=== PATIENT | female | born 1980 | race Caucasian/White ===

== ENCOUNTER 2022-01-14 16:48 | Emergency (ER) | payer MEDICAID, SELFPAY ==
[2022-01-14 16:56] VITALS: BP 146/83; PULSE 76; RESP 18; TEMP 36.3; O2SAT 100
--- NOTE | 2022-01-14 16:57 | ED.SKABFB ---
HPI - Skin/Abscess/Foreign Bdy General Chief complaint: Wound/Laceration Stated complaint: right 1 digit toe infection Time Seen by Provider: 01/14/22 17:00 Source: patient Mode of arrival: ambulatory Limitations: no limitations History of Present Illness HPI narrative: 41-year-old female presented for complaint of right great toe swelling and pain, onset today. Denies injury. She endorses a history of a broken great toenail which has not healed, and usually applies acrylic nail to the toe. She states she had a pedicure about 1 week ago, acrylic applied at that time. Today she endorses redness, pain, warmth, and decreased range of motion to the great toe surrounding the nail. States nail is unchanged. No active drainage. She has not taken anything for pain. She is 2 months . MD complaint: rash Related Data Allergies Allergy/AdvReac Type Severity Reaction Status Date / Time ibuprofen Allergy Intermediate hives Verified 08/03/16 23:33 pseudoephedrine Allergy Intermediate hives Verified 08/03/16 23:33 Review of Systems Review of Systems: CONSTITUTIONAL: Denies body aches, fever, chills, or sweats. EYES: Denies visual changes, redness, or discharge. ENT: Denies rhinorrhea, congestion, sore throat, or otalgia. CARDIOVASCULAR: Denies chest pain, palpitations, or edema. RESPIRATORY: Denies cough or dyspnea. GASTROINTESTINAL: Denies abdominal pain, nausea, vomiting, or diarrhea. GENITOURINARY: Denies dysuria or hematuria. SKIN: redness swelling right great toe. MUSCULOSKELETAL: Denies back pain, joint pain, or myalgia. NEUROLOGIC: Denies headache, numbness, tingling, or weakness. PSYCH: Denies depression or anxiety. [facility] Comments At time of signature, I have reviewed and agree with nursing past medical, surgical, social and family history unless otherwise noted. Please see nursing chart for further information. There is no relevant family history pertinent to the presenting complaint Exam Narrative: GENERAL: Well-appearing HEAD: Normocephalic, atraumatic. EYES: conjunctivae clear, and EOMI. ENT: Mucous membranes moist. Oropharynx without edema, erythema or lesions. NECK: Supple. No lymphadenopathy CHEST: Clear to auscultation. No respiratory distress. HEART: Regular rate and rhythm. SKIN: Right great toe erythematous, warm, and swollen at middle/distal phalanx, no active drainage, tender at distal phalanx, nontender to MTP. Decreased ROM to toe. No streaking. PPP. Toenail broken, chronic/unchanged per pt. NEURO: Alert and oriented x3. PSYCH: Normal mood and affect Course Course Emergency Course: Patient is aware of diagnosis, understands and agrees to treatment plan. Anticipatory guidance given. Patient agrees to follow-up as directed and is aware of reasons to seek care at the emergency department. Portions of this record may have been created with voice recognition software Level of Care: Express Care Visit Vital Signs Vital signs: Reviewed MDM - Skin/Abscess/Foreign Bdy MDM Narrative Medical decision making narrative: Instructed patient to go to nearest ER immediately for any worsening symptoms including but not limited to: fever, spreading redness, pain, drainage, or any symptoms concerning to the patient. Differential Diagnosis Differential diagnosis: Likely abscess of skin or subcutaneous tissue, urticaria, herpes zoster, cellulitis and contact dermatitis Discharge Plan Discharge Clinical Impression: Cellulitis Qualifiers: Site of cellulitis: extremity Site of cellulitis of extremity: toe Laterality: right Qualified Code(s): L03.031 - Cellulitis of right toe Patient Disposition: Home, Self-Care Condition: Stable Instructions: Antibiotic Form, Ingrown Nail (ED) Additional Instructions: Warm salt water or soapy water soaks at least 3 times a day Tylenol 1000mg every 8 hours as needed Keep the right foot elevated Take antibiotic as directed Follow up with your primary care p
[2022-01-14 17:06] VITALS: BP 146/83; PULSE 76; RESP 18; TEMP 36.3; O2SAT 100
== END 2022-01-14 17:11 | disposition home or self-care (01) ==
PROVIDERS: Emergency Provider Nurse Practitioner Family
DX: L03.031 Cellulitis of right toe (principal)
CPT/HCPCS: 99213; G0463

== ENCOUNTER 2022-07-30 09:34 | Observation (INO) | payer OTHER, SELFPAY ==
[2022-07-30 10:49] VITALS: BP 143/83; PULSE 87
--- NOTE | 2022-07-30 13:38 | OBADM ---
This patient, Sayra Lee, admitted to the OB room OB Post 116 for observation. Patient/family oriented to hospital policies and general routines including ID bracelet, bed and alarms, visiting hours, pain management, procedures, bathroom and other care routines, personal items, smoking policy, room service/diet, and visiting hours. Patient/Family are encouraged to report perceived risks to care and to ask questions if they do not understand what they are told or what they should do.
[2022-07-30 13:45] VITALS: BP 143/83
--- NOTE | 2022-08-30 08:36 | PM.OBTRLD ---
OB - Triage/Final Diagnosis Visit Information Comments/Additional reasons for admission: I have assessed the risk for this patient, Sayra Lee, and determined that she would benefit from observation care. Final Diagnosis (1) Breech presentation: Code(s): O32.1XX0 - Maternal care for breech presentation, not applicable or unspecified Status: Acute
== END 2022-07-30 13:00 | disposition home or self-care (01) ==
PROVIDERS: Admitting Provider Obstetrics & Gynecology; Visit Provider Obstetrics & Gynecology
DX: O32.1XX0 Maternal care for breech presentation, not applicable or unspecified (principal); Z3A.00 Weeks of gestation of pregnancy not specified
CPT/HCPCS: 59025; G0378; G0379

== ENCOUNTER 2022-08-02 06:30 | Outpatient (CLI) | payer OTHER, SELFPAY ==
[2022-08-02] VITALS (22 sets, daily range): BP systolic 123–148; BP diastolic 50–95; PULSE 88–106; O2SAT 96–100
--- NOTE | 2022-08-02 07:24 | P.HP_ITS ---
H&P: HPI History of Present Illness Date/Time: 08/02/22 07:24 Chief Complaint: breech Narrative: Sayra is a 42yo at 36.1 with a breech baby. US on 07/22 EFW 15%, normal fluid, anterior placenta. She has had two prior vaginal deliveries. RH pos. otherwise complicated by AMA over 40yo. Review of Systems Review of Systems: All systems reviewed & are unremarkable except as noted in HPI and below PMFSH Family History Family History (Updated 07/23/22 @ 13:19 by Sudha Copeland, DINESH) Other Patient denies significant medical history Social History Social History Substance use: never Spiritual care concerns: No Meds Home Medications and Allergies Home Medications Medication Instructions Recorded Confirmed Type aspirin 81 mg tablet 81 mg PO DAILY 07/23/22 07/23/22 History prenat.vits,lidia,kss-eqpp-vfilk 1 tablet PO HS 07/23/22 07/23/22 History Allergies Allergy/AdvReac Type Severity Reaction Status Date / Time ibuprofen Allergy Intermediate hives Verified 08/03/16 23:33 pseudoephedrine Allergy Intermediate hives Verified 08/03/16 23:33 Vital Signs Vital Signs - 24 hr 08/02/22 07:12 08/02/22 07:15 Pulse Rate 96 88 Blood Pressure 148/77 H 132/70 Exam Const: General: no acute distress Resp: Effort & Inspection: normal respiratory effort Auscultation: clear to auscultation bilaterally Cardio: Rate: regular rate Rhythm: regular rhythm GI: GI Palp: Yes Soft to palpation Extrem: General: normal to inspection Assessment and Plan Assessment and plan (1) Breech presentation: Code(s): O32.1XX0 - Maternal care for breech presentation, not applicable or unspecified Status: Acute Plan Discussed CS at 39w vs attempted ECV. Pt desires ECV. Discussed risks inc luding need for emergent delivery and risk of failure. Questions answered, will proceed.
[2022-08-02] MEDS: TERBUTALINE SULFATE 1 MG/ML VIAL 0.25 MG SUB-Q (07:38)
--- NOTE | 2022-08-02 07:52 | P.OP_ITS ---
Procedure Note - Detailed Date of Procedure 08/02/22 Pre-op Diagnosis Version Post-op Diagnosis Same Procedure Performed External Cephalic Version, failed Surgeon Kim Deng MD Equipment Mechanic Specialist none Anesthesia None Indications breech presentation Description of Procedure heart tones were category 1 prior to procedure. She received terbutaline preprocedure. Ultrasound was done verifying anterior placenta, adequate fluid, and breech presentation. Using ultrasound gel as lubricant, several attempts were made at both a forward roll and backward roll, but the head only moved to midline in the upper quadrant. Heart tones were intermittently visualized with the ultrasound and were normal. The procedure was terminated. Patient tolerated the procedure well. The baby was placed back on the monitor for an additional hour. Estimated Blood Loss 0 Drains No Packing No Pathology None sent Complications No immediate complications Condition Stable Disposition Other (home after monitoring complete.)
--- NOTE | 2022-08-02 07:52 | WPDHPUPDATE1 ---
History and Physical Update Update Date/Time: 08/02/22 07:52 History and Physical has been reviewed, including an updated exam of the patient. There are NO changes in the patient's condition. Risks, benefits, and alternatives have been discussed and questions answered. Patient agrees to proceed with procedure.
== END 2022-08-02 09:05 | disposition home or self-care (01) ==
LOC: ANHOBOP 06:36 → ANHLDR 06:39
PROVIDERS: Visit Provider Obstetrics & Gynecology
DX: O32.1XX0 Maternal care for breech presentation, not applicable or unspecified (principal); Z3A.36 36 weeks gestation of pregnancy
CPT/HCPCS: 59412; 96372; 99199; J3105

== ENCOUNTER 2022-08-13 10:19 | Inpatient (IN) | payer OTHER, SELFPAY ==
[2022-08-13] VITALS (63 sets, daily range): BP systolic 76–150; BP diastolic 24–127; PULSE 60–99; RESP 16–18; TEMP 36.3–37; O2SAT 98–100; BMI 37.6
--- NOTE | 2022-08-13 10:41 | LDADM ---
This patient, Sayra Lee, was admitted to OB Post 117 on 08/13/22 at 10:19. Plans for labor, pain management and were discussed with patient. Patient/family oriented to hospital policies and general routines including ID bracelet, bed and alarms, visiting hours, pain management, procedures, bathroom and other care routines, personal items, smoking policy, room service/diet and guest tray routines, infant security routines, and visiting hours. Patient/Family are encouraged to report perceived risks to care and to ask questions if they do not understand what they are told or what they should do. See OBIX for further documentation.
[2022-08-13 11:24] LABS: Basophils Absolute Auto 0.1 K/mm3 (0.0-0.1); Basophils Percent Auto 0.4 % (0.2-1.2); Eosinophils Absolute Auto 0.2 K/mm3 (0-0.3); Hematocrit 36.1 % (37.0-47.0); Hemoglobin 12.2 g/dL (12.0-15.0); Immature Granulocyte Absolute 0.09 K/mm3 (0.00-0.031); Immature Granulocyte Percent A 0.8 % (0-0.5); Lymphocytes Absolute Auto 2.22 K/mm3 (0.9-3.2); Lymphocytes Percent Auto 18.8 % (18.3-44.2); Mean Corpuscular HGB Conc 33.8 g/dl (32-36); Mean Corpuscular Hemoglobin 30.2 pg (26-34); Mean Corpuscular Volume 89.4 fl (80-100); Monocytes Absolute Auto 0.7 K/mm3 (0.1-0.6); Monocytes Percent Auto 6.2 % (2.6-8.5); Neutrophils Absolute Auto 8.5 K/mm3 (1.3-6.7); Neutrophils Percent Auto 71.8 % (45.5-73.1); Platelet Count Result 303 k/mm3 (150-375); Red Blood Count 4.04 M/mm3 (4.2-5.4); White Blood Count 11.8 K/mm3 (4.5-10.0)
[2022-08-13 11:39] LABS: Alanine Aminotransferase 26 U/L (6-35); Albumin Level 3.7 g/dL (3.5-5.1); Alkaline Phosphatase 136 U/L (38-126); Anion Gap 8 mmol/L (8-16); Aspartate Amino Transferase 27 U/L (14-36); Bilirubin,Total 0.5 mg/dL (0.2-1.3); Blood Urea Nitrogen 7 mg/dL (7-17); Calcium 8.7 mg/dL (8.4-10.2); Carbon Dioxide 20 mmol/L (22-30); Chloride 107 mmol/L (98-107); Estimated CRCL calculation 120 ml/min; Estimated Glomerular Filt Rate > 60; Glucose 126 mg/dL (65-110); Potassium 3.7 mmol/L (3.4-5.0); Sodium 135 mmol/L (137-145)
[2022-08-13] MEDS: LACTATED RINGERS 1,000 ML 125 ML IV CONT (11:50)
--- NOTE | 2022-08-13 12:08 | PM.IMHP ---
H&P: HPI History of Present Illness Date/Time: 08/13/22 12:08 Chief Complaint: PreEclampsia Narrative: Sayra is a 42yo who presented to the office today at 38.0 for visit with BPs 172/96 and 158/96, increased edema, 1+ proteinuria, and blurry vision. Had PreE at the end of her last time. Is breech, so planned CS this time. Has had panniculectomy. Also SGA asnd AMA. Review of Systems Review of Systems: All systems reviewed & are unremarkable except as noted in HPI and below PMFSH Family History Family History (Updated 07/23/22 @ 13:19 by Sudha Copeland RN) Other Patient denies significant medical history Social History Social History Smoking status: Never smoker Substance use: never Lack of Transportation: No Lack of Food: Never True Current Housing: I Have Housing Concerned About Future Housing: No Difficulty Paying Gas/Electric Bills: No Difficulty Paying for Meds: No Currently Unemployed: No Education: High School Diploma/GED Difficulty w/ Childcare or Family Care: No Spiritual care concerns: No Meds Home Medications and Allergies Home Medications Medication Instructions Recorded Confirmed Type aspirin 81 mg tablet 81 mg PO DAILY 07/23/22 08/13/22 History prenat.vits,lidia,[id number]-[id number] 1 tablet PO HS 07/23/22 08/13/22 History Allergies Allergy/AdvReac Type Severity Reaction Status Date / Time pseudoephedrine Allergy Intermediate hives Verified 08/03/16 23:33 Vital Signs Vital Signs - 24 hr 08/13/22 10:45 08/13/22 10:52 08/13/22 11:00 Pulse Rate 89 88 Blood Pressure 144/83 H 135/71 Oxygen Delivery Room Air 08/13/22 11:15 08/13/22 11:30 08/13/22 11:45 Pulse Rate 82 81 82 Blood Pressure 132/71 129/73 141/79 H Oxygen Delivery 08/13/22 12:00 08/13/22 11:49 Pulse Rate 89 82 Blood Pressure 140/82 141/79 H Oxygen Delivery Exam Const: General: no acute distress Resp: Effort & Inspection: normal respiratory effort Auscultation: clear to auscultation bilaterally Cardio: Rate: regular rate Rhythm: regular rhythm GI: GI Palp: Yes Soft to palpation Extrem: General: normal to inspection H&P: Results Labs Labs: Short CBC 08/13/22 Range/Units 10:53 WBC 11.8 H (4.5-10.0) K/mm3 Hgb 12.2 (12.0-15.0) g/dL Hct 36.1 L (37.0-47.0) % Plt Count 303 (150-375) k/mm3 BMP 08/13/22 10:52 Sodium 135 L Potassium 3.7 Chloride 107 Carbon Dioxide 20 L BUN 7 Creatinine 0.60 L Glucose 126 H Calcium 8.7 Liver Function 08/13/22 Range/Units 10:52 Total Bilirubin 0.5 (0.2-1.3) mg/dL AST 27 (14-36) U/L ALT 26 (6-35) U/L Alkaline Phosphatase 136 H (38-126) U/L Albumin 3.7 (3.5-5.1) g/dL Assessment and Plan Assessment and plan (1) Breech presentation: Code(s): O32.1XX0 - Maternal care for breech presentation, not applicable or unspecified Status: Acute (2) Preeclampsia: Code(s): O14.90 - Unspecified pre-eclampsia, unspecified trimester Status: Acute (3) SGA (small for gestational age), , affecting care of mother, antepartum: Code(s): O36.5990 - Maternal care for other known or suspected poor growth, unspecified trimester, not applicable or unspecified Status: Acute Plan Will proceed with primary CS for preE at term. Discussed RBA and consented, questions answered. Will proceed.
--- NOTE | 2022-08-13 12:51 | WPDANESEPPF ---
Anes - Initial Pre Proc Eval Procedure: Operation Date: 08/13/22 14:00 Proposed Procedures p Primary Section - Ashley Lassiter MD Date/Time: 08/13/22 12:51 Surgeon: Kim Deng MD Pre Op Diagnosis: C/S Patient Data Age: 42 Gender: F Height: 1.63 m Weight: 99.5 kg Last Vital Signs Pulse 80 08/13/22 12:45 BP 139/89 08/13/22 12:45 O2 Del Method Room Air 08/13/22 10:45 Allergies Allergy/AdvReac Type Severity Reaction Status Date / Time pseudoephedrine Allergy Intermediate hives Verified 08/03/16 23:33 Home Medications Medication Instructions Recorded Confirmed Type aspirin 81 mg tablet 81 mg PO DAILY 07/23/22 08/13/22 History prenat.vits,lidia,bou-rpqp-ltzid 1 tablet PO HS 07/23/22 08/13/22 History Laboratory Tests 08/13/22 08/13/22 08/13/22 10:52 10:53 10:53 WBC 11.8 K/mm3 H K/mm3 (4.5-10.0) RBC 4.04 M/mm3 L M/mm3 (4.2-5.4) Hgb 12.2 g/dL g/dL (12.0-15.0) Hct 36.1 % L % (37.0-47.0) MCV 89.4 fl fl (80-100) MCH 30.2 pg pg (26-34) MCHC 33.8 g/dl g/dl (32-36) RDW 14.0 % % (11.5-14.5) Plt Count 303 k/mm3 k/mm3 (150-375) MPV 11.0 fl H fl (7.4-10.4) Immature Gran % (Auto) 0.8 % H % (0-0.5) Neut % (Auto) 71.8 % % (45.5-73.1) Lymph % (Auto) 18.8 % % (18.3-44.2) Prentiss % (Auto) 6.2 % % (2.6-8.5) Eos % (Auto) 2.0 % % (0-4.4) Baso % (Auto) 0.4 % % (0.2-1.2) Lymph # (Auto) 2.22 K/mm3 K/mm3 (0.9-3.2) Prentiss # (Auto) 0.7 K/mm3 H K/mm3 (0.1-0.6) Eos # (Auto) 0.2 K/mm3 K/mm3 (0-0.3) Baso # (Auto) 0.1 K/mm3 K/mm3 (0.0-0.1) Abs Immat Gran (auto) 0.09 K/mm3 H K/mm3 (0.00-0.031) Absolute Neuts (auto) 8.5 K/mm3 H K/mm3 (1.3-6.7) Absolute Nucleated RBC 0.0 K/mm3 K/mm3 (0.0-0.012) Nucleated RBC % 0.0 % % (0.0-0.2) Sodium 135 mmol/L L mmol/L (137-145) Potassium 3.7 mmol/L mmol/L (3.4-5.0) Chloride 107 mmol/L mmol/L (98-107) Carbon Dioxide 20 mmol/L L mmol/L (22-30) Anion Gap 8 mmol/L mmol/L (8-16) BUN 7 mg/dL mg/dL (7-17) Creatinine 0.60 mg/dL L mg/dL (0.7-1.0) Estim Creat Clear Calc 120 ml/min ml/min Estimated GFR > 60 (59 - ) Glucose 126 mg/dL H mg/dL (65-110) Calcium 8.7 mg/dL mg/dL (8.4-10.2) Total Bilirubin 0.5 mg/dL mg/dL (0.2-1.3) AST 27 U/L U/L (14-36) ALT 26 U/L U/L (6-35) Alkaline Phosphatase 136 U/L H U/L (38-126) Total Protein 7.0 g/dL g/dL (6.3-8.2) Albumin 3.7 g/dL g/dL (3.5-5.1) RPR Pending Blood Type Antibody Screen 08/13/22 10:53 WBC RBC Hgb Hct MCV MCH MCHC RDW Plt Count MPV Immature Gran % (Auto) Neut % (Auto) Lymph % (Auto) Prentiss % (Auto) Eos % (Auto) Baso % (Auto) Lymph # (Auto) Prentiss # (Auto) Eos # (Auto) Baso # (Auto) Abs Immat Gran (auto) Absolute Neuts (auto) Absolute Nucleated RBC Nucleated RBC % Sodium Potassium Chloride Carbon Dioxide Anion Gap BUN Creatinine Estim Creat Clear Calc Estimated GFR Glucose Calcium Total Bilirubin AST ALT Alkaline Phosphatase Total Protein Albumin RPR Blood Type A Positive Antibody Screen Negative Patient hx anesthesia problems: none Family hx anesthesia problems: none Results Review: All pre-operative results and documents have been reviewed as part of the pre-operative evaluation. [facility] Family History Family History (Reviewed
--- NOTE | 2022-08-13 13:06 | WPDHPUPDATE1 ---
History and Physical Update Update Date/Time: 08/13/22 13:06 History and Physical has been reviewed, including an updated exam of the patient. There are NO changes in the patient's condition. Risks, benefits, and alternatives have been discussed and questions answered. Patient agrees to proceed with procedure.
[2022-08-13] MEDS: ceFAZolin 2 GM/D5W 50 ML 2 GM/50 ML BAG IVPB (13:35)
[2022-08-13 14:46] LABS: Rapid Plasma Reagin Non-Reactive (NonReactive)
--- NOTE | 2022-08-13 14:55 | PM.OBPRVD ---
OB - Delivery Note Procedure Delivery date: 08/13/22 Procedure: Procedures Operation Date: 08/13/22 14:00 Actual Procedure Side Surgeon p Section Kim Deng MD Events: Breech Presentation (footling) and Preeclampsia w/o severe features Route of delivery: Specimen: Yes (placenta) Quantitative Blood Loss (ml): 625 Anesthesia type: Epidural Disposition: Floor Complications: none Narrative: The patient was taken to the OR and had her epidural anesthesia dosed adequately. She was placed in dorsal supine position with left lateral tilt. SCDs and saunders had been placed. She was prepped and draped in the normal sterile fashion. A Pfannensteil skin incision was made and carried through to the underlying layer of fascia. The fascia was incised in the midline and then extended laterally using Lechuga scissors. The muscles were in the midline, which proved challenging following her abdominoplasty, and the peritoneum was entered bluntly. The peritoneal incision was extended inferiorly and superiorly with care to avoid the bladder. The bladder blade was then inserted, the vesicouterine peritoneum was grasped, incised with Metzenbaum scissors, and a bladder flap created. The bladder blade was reinserted. A low transverse uterine incision was made with a scalpel and extended bluntly. AROM was performed and fluid was noted to be clear. The baby was delivered footling breech atraumatically in standard fashion. The baby's oropharynx was suctioned. After 30 seconds, the cord was clamped and cut and the was handed off. Cord blood was obtained and the placenta was then removed manually. The uterus was exteriorized. A moist lap sponge was used to curette the endometrium. The uterine incision was then closed with one layer of 0-Vicryl in a running, locking fashion. Good hemostasis was noted. The posterior cul de sac was irrigated with normal saline and cleared of all clot and debris. The uterus was returned to the abdomen. Both lateral gutters were then irrigated. The rectus muscles were inspected and found to be hemostatic. The fascia was reapproximated using 0-Vicryl in running fashion. The subcutaneous tissue was irrigated with normal saline and made hemostatic with Bovie electrocautery. The subcutaneous tissue was reapproximated with a layer of running 2-0 plain gut. The skin was then closed with absorbable jaguar. Steri strips and a bandage were applied. The uterus was evacuated. The patient tolerated the procedure very well. All counts were correct. She was taken to the recovery room in good condition. Baby Date of : 08/13/22 Time of : 14:21 Weeks of gestation at delivery: 38 Infant gender: Female Weight (pounds): 5 Weight (ounces): 15 presentation: breech (footling) Placenta delivery description: Manual Removal Cord Vessel Description: 3 Vessels and Delayed Cord Clamping score one minute: 7 score five minutes: 9
[2022-08-13] MEDS: OXYTOCIN 30 UNITS/NS 500 ML 30 UNITS/500 ML BAG 125 UNITS IV CONT (15:15)
[2022-08-13] MEDS: KETOROLAC 30 MG/ML VIAL (*BKC) IV PUSH (15:47)
--- NOTE | 2022-08-13 17:33 | PC.NURSE ---
Patient transferred to post room #281 via stretcher. Support person present. Oriented to unit, room, information board, rooming in, admission packet and security measures. Patient verbalizes understanding.
[2022-08-14] VITALS: BP 133/78; PULSE 100; RESP 18; TEMP 37.1
[2022-08-14 04:00] VITALS: BP 126/69; PULSE 104; RESP 18; TEMP 37.1
[2022-08-14 06:27] LABS: Basophils Percent Auto 0.2 % (0.2-1.2); Eosinophils Absolute Auto 0.2 K/mm3 (0-0.3); Eosinophils Percent Auto 1.2 % (0-4.4); Hematocrit 31.5 % (37.0-47.0); Hemoglobin 10.5 g/dL (12.0-15.0); Immature Granulocyte Absolute 0.11 K/mm3 (0.00-0.031); Immature Granulocyte Percent A 0.6 % (0-0.5); Lymphocytes Absolute Auto 2.37 K/mm3 (0.9-3.2); Lymphocytes Percent Auto 13.9 % (18.3-44.2); Mean Corpuscular HGB Conc 33.3 g/dl (32-36); Mean Corpuscular Hemoglobin 29.7 pg (26-34); Mean Corpuscular Volume 89.2 fl (80-100); Mean Platelet Volume 11.2 fl (7.4-10.4); Monocytes Absolute Auto 1.3 K/mm3 (0.1-0.6); Monocytes Percent Auto 7.6 % (2.6-8.5); Neutrophils Percent Auto 76.5 % (45.5-73.1); Platelet Count Result 280 k/mm3 (150-375); Red Blood Count 3.53 M/mm3 (4.2-5.4); Red Cell Distribution Width 13.9 % (11.5-14.5)
[2022-08-14] MEDS: DOCUSATE SODIUM 100 MG CAPSULE PO ×2 (06:53→17:01)
[2022-08-14] MEDS: MULTIVIT/MIN/PREN/FOL AC/IRON TABLET 1 TAB PO (06:53)
[2022-08-14] MEDS: IBUPROFEN 600 MG TABLET PO ×3 (06:54→19:53)
[2022-08-14] MEDS: SIMETHICONE 80 MG TAB.CHEW PO ×2 (06:55→13:14)
[2022-08-14] MEDS: HYDROcodone/acetaminophen (*CRX) 10-325 MG TABLET 1 TAB PO ×2 (06:55→17:01)
--- NOTE | 2022-08-14 07:44 | WPDANLDPN2 ---
Anes-Prog Note L&D Date/Time: 08/14/22 07:44 Comfortable throughout: section Neuraxial method: spinal Epidural/Spinal procedure site: clean & non-tender Neuro status: Neuro function grossly intact. Cardiovascular status: normal Respiratory status: normal Airway patency: baseline Mental status: baseline Post-Op hydration status: normal Vital Signs: Last Vital Signs Temp 37.1 C 08/14/22 04:00 Pulse 104 H 08/14/22 04:00 Resp 18 08/14/22 04:00 BP 126/69 08/14/22 04:00 Pulse Ox 100 08/13/22 17:40 O2 Del Method Room Air 08/14/22 04:00 Pain score (VAS): 3/10 I/O: Intake & Output 08/13/22 08/13/22 08/14/22 15:59 23:59 07:59 Intake Total 240 4000 Output Total 625 700 Balance -[phone] Post-procedural complaints: none Patient feedback: Patient satisfied with anesthetic care.
--- NOTE | 2022-08-14 07:45 | WPDANLDNPN2 ---
Anes-Prog Note L&D-Neuraxial Date/Time: 08/14/22 07:45 Neuraxial medications: intrathecal PF morphine Opiod-related complaints: pruritis mild, no treatment Patient feedback: Patient satisfied with post-operative pain management.
[2022-08-14 08:00] VITALS: BP 130/65; PULSE 101; RESP 18; TEMP 36.7; O2SAT 99
--- NOTE | 2022-08-14 08:36 | PM.OBPNVD ---
OB - PN: Subj Subjective Date/time seen: 08/14/22 08:36 s/p section day 1 OB - PN: Obj Data Labs 08/14/22 04:11 08/13/22 10:52 Labs: Laboratory Results - last 24 hr 08/13/22 08/13/22 08/13/22 10:52 10:53 10:53 WBC 11.8 H RBC 4.04 L Hgb 12.2 Hct 36.1 L MCV 89.4 MCH 30.2 MCHC 33.8 RDW 14.0 Plt Count 303 MPV 11.0 H Immature Gran % (Auto) 0.8 H Neut % (Auto) 71.8 Lymph % (Auto) 18.8 Carbon % (Auto) 6.2 Eos % (Auto) 2.0 Baso % (Auto) 0.4 Lymph # (Auto) 2.22 Carbon # (Auto) 0.7 H Eos # (Auto) 0.2 Baso # (Auto) 0.1 Abs Immat Gran (auto) 0.09 H Absolute Neuts (auto) 8.5 H Absolute Nucleated RBC 0.0 Nucleated RBC % 0.0 Sodium 135 L Potassium 3.7 Chloride 107 Carbon Dioxide 20 L Anion Gap 8 BUN 7 Creatinine 0.60 L Estim Creat Clear Calc 120 Estimated GFR > 60 Glucose 126 H Calcium 8.7 Total Bilirubin 0.5 AST 27 ALT 26 Alkaline Phosphatase 136 H Total Protein 7.0 Albumin 3.7 RPR Non-reactive Blood Type Antibody Screen 08/13/22 08/14/22 10:53 04:11 WBC 17.0 H RBC 3.53 L Hgb 10.5 L Hct 31.5 L MCV 89.2 MCH 29.7 MCHC 33.3 RDW 13.9 Plt Count 280 MPV 11.2 H Immature Gran % (Auto) 0.6 H Neut % (Auto) 76.5 H Lymph % (Auto) 13.9 L Carbon % (Auto) 7.6 Eos % (Auto) 1.2 Baso % (Auto) 0.2 Lymph # (Auto) 2.37 Carbon # (Auto) 1.3 H Eos # (Auto) 0.2 Baso # (Auto) 0.0 Abs Immat Gran (auto) 0.11 H Absolute Neuts (auto) 13.0 H Absolute Nucleated RBC 0.0 Nucleated RBC % 0.0 Sodium Potassium Chloride Carbon Dioxide Anion Gap BUN Creatinine Estim Creat Clear Calc Estimated GFR Glucose Calcium Total Bilirubin AST ALT Alkaline Phosphatase Total Protein Albumin RPR Blood Type A Positive Antibody Screen Negative OB - PN A/P Plan day: 1 Time Spent With Patient Time: Total time spent is greater than 50% in coordination of care (as documented) at patient's floor/unit and/or counseling patient: Review of Systems Review of Systems: All systems reviewed & are unremarkable except as noted in HPI and below Exam Narrative: Incision CDI Const: General: cooperative, healthy appearing and comfortable Chest: Chest palpation & inspection: normal inspection of the chest Resp: Effort & Inspection: normal respiratory effort Skin: General skin exam: normal color Neuro: General: patient oriented x3
[2022-08-14] MEDS: HYDROcodone/acetaminophen (*CRX) 5-325 MG TABLET 1 TAB PO ×2 (13:14→22:58)
[2022-08-14 13:25] VITALS: BP 127/70; PULSE 91; RESP 16; TEMP 36.7; O2SAT 98
[2022-08-14 16:00] VITALS: BP 118/65; PULSE 101; RESP 16; TEMP 36.7; O2SAT 99
[2022-08-14 19:35] VITALS: BP 130/64; PULSE 92; RESP 18; TEMP 36.6; O2SAT 99
[2022-08-14] MEDS: LANOLIN (LANSINOH) 7.5 GM CREAM 1 APPLIC TOPICAL (19:54)
[2022-08-15 01:00] VITALS: BP 113/62; PULSE 90; RESP 18; TEMP 36.5; O2SAT 98
[2022-08-15] MEDS: HYDROcodone/acetaminophen (*CRX) 10-325 MG TABLET 1 TAB PO (01:32)
[2022-08-15 05:25] VITALS: BP 124/61; PULSE 82; RESP 16; TEMP 36.6; O2SAT 98
[2022-08-15] MEDS: IBUPROFEN 600 MG TABLET PO ×2 (05:34→11:43)
[2022-08-15] MEDS: HYDROcodone/acetaminophen (*CRX) 5-325 MG TABLET 1 TAB PO ×3 (05:35→11:43)
[2022-08-15 06:55] VITALS: BP 138/71; PULSE 77; RESP 18; TEMP 36.4; O2SAT 98
--- NOTE | 2022-08-15 06:58 | PM.OBPNVD ---
OB - PN: Subj Subjective Date/time seen: 08/15/22 06:58 s/p section day 2 OB - PN: Obj Data Labs 08/14/22 04:11 08/13/22 10:52 OB - PN A/P Time Spent With Patient Time: Total time spent is greater than 50% in coordination of care (as documented) at patient's floor/unit and/or counseling patient: Review of Systems Review of Systems: All systems reviewed & are unremarkable except as noted in HPI and below Exam Narrative: incision cdi Const: General: cooperative, healthy appearing and comfortable Resp: Effort & Inspection: normal respiratory effort Skin: General skin exam: normal color Extrem: Right upper extremity: normal to inspection Left upper extremity: normal to inspection
--- NOTE | 2022-08-15 07:01 | PM.OBDSVD ---
DS: Admitting Diagnosis Discharge Date 08/15/22 Admitting Diagnosis breech presentation, preeclampsia DS: Discharge Diagnosis Discharge Diagnosis (1) Delivery by section: Status: Acute OB - DS: Summary OB Procedures : None and PIH Mgmt OB Procedures Intrapartum: OB Procedures: : None Peripartum Data Procedures: Procedures Operation Date: 08/13/22 14:00 Actual Procedure Side Surgeon p Section Kim Deng MD Time Spent with Patient Time attestation: Total time spent providing and/or coordinating discharge services: DS: Data Data Completed and Pending Pending studies at discharge: Pending at discharge 08/13/22 14:23 Surgical [PTH] Routine Discharge Plan Discharge Attending physician on discharge: Ashley Lassiter Discharging Clinician: Corinne Olivarez Patient Disposition: Home, Self-Care Activity: pelvic rest Diet: regular Patient Instructions: Antibiotic Form Stand Alone Forms: General Discharge Information Follow-up/Referrals: Kim Deng MD [Physician] - 1 Week Discharge Medications: Continued prenat.vits,lidia,[id number]-tmfpb Tablet 1 tablet PO HS Discontinued aspirin 81 mg Tablet 81 mg PO DAILY Date of admission: 08/13/22 10:19 Primary Care Provider: UNKNOWN,DOCTOR Admitting Provider: Kim eDng Attending physician on admission: Kim Deng Condition: Stable
[2022-08-15] MEDS: DOCUSATE SODIUM 100 MG CAPSULE PO (08:38)
[2022-08-15] MEDS: MULTIVIT/MIN/PREN/FOL AC/IRON TABLET 1 TAB PO (08:38)
[2022-08-15 11:45] VITALS: BP 110/60; PULSE 87
[2022-08-15] MEDS: MEASLES,MUMPS,RUBELLA VACCINE 0.5 ML VIAL SUB-Q (11:50)
--- NOTE | 2022-08-15 13:00 | PC.NURSE ---
Patient viewed the discharge video Mother & Baby Care, The First Two Weeks . Patient was given the opportunity and encouraged to ask questions. Patient verbalized understanding of information shared and has been given the mother/baby guide for home reference.
[2022-08-17 10:18] VITALS: BP 148/82; PULSE 89; RESP 20; TEMP 37.1; O2SAT 98
== END 2022-08-15 14:55 | disposition home or self-care (01) | DRG 540 ==
LOC: ANHOBPP 17:22 → ANHOB2 17:23
PROVIDERS: Admitting Provider Obstetrics & Gynecology; Visit Provider Obstetrics & Gynecology
PROC: 10D00Z1 Extraction of Products of Conception, Low, Open Approach (ICD-10-PCS; CPT 59514; principal; 2022-08-13 10:00)
DX: O32.8XX0 Maternal care for other malpresentation of fetus, not applicable or unspecified (principal); O14.94 Unspecified pre-eclampsia, complicating childbirth; O36.5930 Maternal care for other known or suspected poor fetal growth, third trimester, not applicable or unspecified; Z37.0 Single live birth; Z3A.38 38 weeks gestation of pregnancy
CPT/HCPCS: 36415; 80053; 85025; 86592; 86850; 86900; 86901; 88307; 90710; A9270; J0690; J1885; J2274; J2590; J7120

== ENCOUNTER 2022-08-19 17:11 | Outpatient (CLI) | payer OTHER, SELFPAY ==
[2022-08-19] VITALS (55 sets, daily range): BP systolic 129–164; BP diastolic 68–99; PULSE 75–99; RESP 18; TEMP 36.8; O2SAT 86–100; BMI 35.9
[2022-08-19 17:53] LABS: Basophils Absolute Auto 0.1 K/mm3 (0.0-0.1); Basophils Percent Auto 0.6 % (0.2-1.2); Eosinophils Absolute Auto 0.5 K/mm3 (0-0.3); Eosinophils Percent Auto 5.4 % (0-4.4); Hemoglobin 10.7 g/dL (12.0-15.0); Immature Granulocyte Absolute 0.05 K/mm3 (0.00-0.031); Immature Granulocyte Percent A 0.6 % (0-0.5); Lymphocytes Absolute Auto 2.56 K/mm3 (0.9-3.2); Lymphocytes Percent Auto 28.6 % (18.3-44.2); Mean Corpuscular HGB Conc 33.4 g/dl (32-36); Mean Corpuscular Hemoglobin 30.3 pg (26-34); Mean Corpuscular Volume 90.7 fl (80-100); Mean Platelet Volume 9.5 fl (7.4-10.4); Monocytes Absolute Auto 0.8 K/mm3 (0.1-0.6); Monocytes Percent Auto 8.4 % (2.6-8.5); Neutrophils Absolute Auto 5.1 K/mm3 (1.3-6.7); Neutrophils Percent Auto 56.4 % (45.5-73.1); Platelet Count Result 436 k/mm3 (150-375); Red Blood Count 3.53 M/mm3 (4.2-5.4); Red Cell Distribution Width 13.6 % (11.5-14.5)
[2022-08-19 18:01] LABS: Alanine Aminotransferase 52 U/L (6-35); Albumin Level 3.6 g/dL (3.5-5.1); Alkaline Phosphatase 100 U/L (38-126); Anion Gap 7 mmol/L (8-16); Aspartate Amino Transferase 37 U/L (14-36); Bilirubin,Total 0.5 mg/dL (0.2-1.3); Blood Urea Nitrogen 16 mg/dL (7-17); Calcium 8.6 mg/dL (8.4-10.2); Carbon Dioxide 25 mmol/L (22-30); Chloride 104 mmol/L (98-107); Estimated Glomerular Filt Rate > 60; Glucose 84 mg/dL (65-110); Potassium 3.8 mmol/L (3.4-5.0); Sodium 136 mmol/L (137-145); Uric Acid 4.1 mg/dL (2.5-7.5)
[2022-08-19] MEDS: CEPHALEXIN 500 MG CAPSULE PO (18:38)
[2022-08-19] MEDS: ACETAMINOPHEN 500 MG TABLET 1000 MG PO (18:38)
[2022-08-19 20:53] LABS: Total Protein Urine Random 9 mg/dL; Ur Ttl Prot Creatinine Ratio 0.12 mg/mg (0-0.20)
--- NOTE | 2022-08-19 21:19 | PC.NURSE ---
Updated Dr. Lassiter on PC ratio, orders received to D/C with instructions to see office tomorrow at 0900 for an incision evaluation.
== END 2022-08-19 21:46 | disposition home or self-care (01) ==
LOC: ANHOBOP 17:16 → ANHOBPP 17:16 → ANHOBOP 21:31 → ANHOBPP 21:35
PROVIDERS: Visit Provider Obstetrics & Gynecology
DX: O16.5 Unspecified maternal hypertension, complicating the puerperium (principal)
CPT/HCPCS: 36415; 80053; 82570; 84156; 84550; 85025; A9270

== ENCOUNTER 2022-09-29 11:59 | Emergency (ER) | payer OTHER, SELFPAY ==
[2022-09-29 12:05] VITALS: BP 129/71; PULSE 79; RESP 16; TEMP 36.3; O2SAT 99
--- NOTE | 2022-09-29 12:37 | ED.URI ---
HPI - URI/Sore Throat General Chief Complaint: Upper Respiratory Infection Stated Complaint: sore throat Time Seen by Provider: 09/29/22 12:10 Source: patient Mode of arrival: ambulatory Limitations: no limitations History of Present Illness HPI Narrative: Poonam is a 42-year-old female patient presenting to clinic today with complaints of sore throat, nasal congestion, and cough x5 days. She denies any known fever or chills. She reports her baby was seen last week for similar symptoms at the primary care doctor and was tested for RSV, COVID, and flu and all the testing was negative at that time. MD elicited complaint: sore throat and nasal congestion Related Data Allergies Allergy/AdvReac Type Severity Reaction Status Date / Time pseudoephedrine Allergy Intermediate hives Verified 09/29/22 12:10 Review of Systems Review of Systems: Pertinent positives per HPI. Patient denies any fever, chills, rash, headache, visual changes, dizziness,shortness of breath, chest pain, palpitations, nausea, vomiting, diarrhea, constipation, abdominal pain, or any urinary issues. PMFSH Family History Family History Other Patient denies significant medical history Social History Social History Smoking status: Never smoker Substance use: never Lack of Transportation: No Lack of Food: Never True Current Housing: I Have Housing Concerned About Future Housing: No Difficulty Paying Gas/Electric Bills: No Difficulty Paying for Meds: No Currently Unemployed: No Education: High School Diploma/GED Difficulty w/ Childcare or Family Care: No Spiritual care concerns: No Comments At the time of my signature, I reviewed and agree with the nursing past medical, surgical, social, and family history. There is no relevant family history pertinent to the patient complaint. Exam Narrative: General: Well-developed, well nourished, in no apparent distress Head: Normocephalic, atraumatic Eyes: Pupils equally round and reactive to light bilaterally, EOM intact, sclera and conjunctive clear, no discharge, lids normal Ears: TMs intact and congested, ear canals clear, no drainage, grossly hearing normal. Nose: Nares patent, clear nasal discharge, no inflammation, no sinus tenderness. Mouth: Oral pharynx without lesions or masses, good dentition, MMM. Oropharynx red, postnasal drip Neck: Supple, trachea midline, no enlargement of anterior or posterior cervical nodes, no thyroid masses or goiter palpable. Cardio: Regular rate and rhythm, s1 and s2 normal, no murmur appreciated. Resp: Clear to auscultation bilaterally, no rhonchi, rales, wheezing or rubs Course Course Emergency Course: Portions of this record may have been created with voice recognition software. Level of Care: Express Care Visit Vital Signs Vital signs: Vital Signs Temperature 36.3 C L 09/29/22 12:05 Pulse Rate 79 09/29/22 12:05 Respiratory Rate 16 09/29/22 12:05 Blood Pressure 129/71 09/29/22 12:05 Pulse Oximetry 99 09/29/22 12:05 Oxygen Delivery Room Air 09/29/22 12:05 Temperature 36.3 C L 09/29/22 12:05 Pulse Rate 79 09/29/22 12:05 Respiratory Rate 16 09/29/22 12:05 Blood Pressure 129/71 09/29/22 12:05 Pulse Oximetry 99 09/29/22 12:05 Oxygen Delivery Room Air 09/29/22 12:05 Vital signs reviewed MDM - URI/Sore Throat MDM Narrative Medical decision making narrative: At the time of visit patient is resting comfortably on the exam table. Strep screen was obtained was negative at this time. Supportive measures were discussed with the patient and she voiced understanding of discharge instructions. Prescription for prednisone and lidocaine was sent to the pharmacy. Differential Diagnosis Differential diagnosis: Likely upper respiratory infection, otitis media, sinusitis, viral infection, bronch
== END 2022-09-29 12:50 | disposition home or self-care (01) ==
PROVIDERS: Emergency Provider Nurse Practitioner Family
DX: J02.8 Acute pharyngitis due to other specified organisms (principal)
CPT/HCPCS: 87081; 87880; 99213; G0463